=== PATIENT | female | born 1965 | race American Indian/Alaskan Native ===

== ENCOUNTER 2016-10-18 07:01 | Emergency (ER) | payer OTHER ==
[2016-10-18 07:02] VITALS: BMI 31.0
--- NOTE | 2016-10-18 08:06 | C.PDOC ---
History Of Present Illness 51 y/o female presents to ED with complaints of left distal forearm and wrist pain with swelling for x1 day. No known injury is reported. Patient states pain is worse with extension of 2,3,4th fingers and "tingling" to fingers. Patient denies neck pain, fever, chills or any other complaints at this time. Time Seen by Provider: 10/18/16 07:09 Chief Complaint (Nursing): Upper Extremity Problem/Injury History Per: Patient History/Exam Limitations: no limitations Onset/Duration Of Symptoms: Days Current Symptoms Are (Timing): Still Present Past Medical History Vital Signs: Last Vital Signs Temp 97.5 F L 10/18/16 07:10 Pulse 80 10/18/16 07:10 Resp 16 10/18/16 07:10 BP 143/94 H 10/18/16 07:10 Pulse Ox - Medical History PMH: HTN, Migraine Family History: States: Unknown Family Hx - Social History Hx Tobacco Use: No Hx Alcohol Use: Yes Hx Substance Use: No - Immunization History Hx Tetanus Toxoid Vaccination: No Hx Influenza Vaccination: Yes Hx Pneumococcal Vaccination: No Review Of Systems Constitutional: Negative for: Fever, Chills Musculoskeletal: Negative for: Neck Pain Skin: Negative for: Rash Neurological: Negative for: Weakness, Headache, Dizziness Physical Exam - Physical Exam Appears: Non-toxic, No Acute Distress Skin: Normal Color, Warm Head: Atraumatic, Normacephalic Eye(s): bilateral: Normal Inspection Neck: Normal ROM Extremity: Tenderness (Tenderness of left wrist to 5cm distal forearm), Capillary Refill, Swelling (Swelling of left wrist to 5cm distal forearm), Other (Full range of motion of L arm at shoulder and elbow, painful ROM at L wrist) Pulses: Left Radial: Normal, Right Radial: Normal Neurological/Psych: Oriented x3, Normal Speech, Normal Cognition, Normal Motor, Normal Sensation ED Course And Treatment - Other Rad left wrist X-Ray: Interpreted by Me, Viewed By Me Interpretation: no fracture noted Progress Note: pt reports decreased pain after Toradol Reevaluation Time: 08:39 (wrist splint applied) Reassessment Condition: Improved Medical Decision Making Medical Decision Making: Patient given Toradol, xrays ordered. Possible diagnosis Tendonitis Disposition Counseled Patient/Family Regarding: Studies Performed, Diagnosis, Need For Followup, Rx Given - Disposition Referrals: Ian Ballard III, MD [Staff Provider] - Disposition: HOME/ ROUTINE Disposition Time: 08:42 Condition: IMPROVED Additional Instructions: Wear wrist splint for comfort, cold compresses to reduce swelling. Ibuprofen or Aleve for pain. Follow up with ortho. Do not take muscle relaxant when working or operating machinery. Prescriptions: Cyclobenzaprine [Cyclobenzaprine HCl] 10 mg PO Q8 #9 tab Instructions: Tendinitis (ED) Forms: Gen Discharge Inst Faroese - Clinical Impression Clinical Impression: Tendonitis of wrist, left - PA / TANDEM OPERATOR / Resident Statement MD/DO has reviewed & agrees with the documentation as recorded. - Scribe Statement The provider has reviewed the documentation as recorded by the Rohan Gerber All medical record entries made by the Rohan were at my direction and personally dictated by me. I have reviewed the chart and agree that the record accurately reflects my personal performance of the history, physical exam, medical decision making, and the department course for this patient. I have also personally directed, reviewed, and agree with the discharge instructions and disposition.
[2016-10-18 09:22] VITALS: BP 113/77; PULSE 85; RESP 18; TEMP 97.8; O2SAT 100
--- NOTE | 2016-10-18 11:54 | RAD ---
PROCEDURE: Left Wrist Radiographs. HISTORY: swelling prox wrist and pain COMPARISON: None available. FINDINGS: BONES: No acute displaced fracture. JOINTS: No dislocation. SOFT TISSUES: Soft tissue swelling. No evidence of radiopaque foreign body OTHER FINDINGS: None. IMPRESSION: Soft tissue swelling. No acute displaced fracture, dislocation, or significant joint effusion identified. If symptoms persist, or if there is continued clinical concern, x-ray follow-up in 7-10 days should be considered.
== END 2016-10-18 09:25 | disposition home or self-care (01) ==
LOC: C.ER 07:01
DX: M77.9 Enthesopathy, unspecified (principal)
CPT/HCPCS: 73110; 96372; 99284; J1885

== ENCOUNTER 2016-12-09 13:17 | Emergency (ER) | payer OTHER ==
[2016-12-09 13:17] VITALS: BMI 31.0
[2016-12-09 13:27] VITALS: RESP 18; TEMP 97.2
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
[2016-12-09 14:31] VITALS: BP 136/78; PULSE 78
[2016-12-09 15:09] VITALS: O2SAT 100
== END 2016-12-09 14:35 | disposition home or self-care (01) ==
LOC: C.ER 13:17
DX: S39.011A Strain of muscle, fascia and tendon of abdomen, initial encounter (principal); X58.XXXA Exposure to other specified factors, initial encounter

== ENCOUNTER 2017-02-12 08:56 | Emergency (ER) | payer OTHER ==
[2017-02-12 09:13] VITALS: BMI 31.8
[2017-02-12 09:14] VITALS: TEMP 97.6
--- NOTE | 2017-02-12 09:22 | C.PDOC ---
History Of Present Illness 52 y/o female c/o an atraumatic right shoulder pain for 2 days. Patient is unable to fully abduct her right arm and has pain with ROM. Denies weakness, numbness. Time Seen by Provider: 02/12/17 09:21 Chief Complaint (Nursing): Upper Extremity Problem/Injury History Per: Patient History/Exam Limitations: no limitations Onset/Duration Of Symptoms: Days (2) Current Symptoms Are (Timing): Still Present Quality: "Pain" Severity: Mild Exacerbating Factor(s): Movement Recent travel outside of the [facility]: No Additional History Per: Patient Past Medical History Reviewed: Historical Data, Nursing Documentation, Vital Signs Vital Signs: Last Vital Signs Temp 97.6 F 02/12/17 09:12 Pulse 78 02/12/17 10:13 Resp 16 02/12/17 10:13 BP 129/78 02/12/17 10:13 Pulse Ox 99 02/12/17 10:33 - Medical History PMH: HTN, Migraine Denies: Chronic Kidney Disease Family History: States: Unknown Family Hx - Social History Hx Tobacco Use: No Hx Alcohol Use: Yes Hx Substance Use: No - Immunization History Hx Tetanus Toxoid Vaccination: No Hx Influenza Vaccination: Yes Hx Pneumococcal Vaccination: No Review Of Systems Constitutional: Negative for: Other (Trauma) Musculoskeletal: Positive for: Shoulder Pain (Right) Neurological: Negative for: Weakness, Numbness Physical Exam - Physical Exam Appears: Well, Non-toxic, No Acute Distress Skin: Warm, Dry Head: Atraumatic, Normacephalic Eye(s): bilateral: Normal Inspection, PERRL, EOMI Extremity: No Normal ROM (Decreased active ROM at R shoulder secondary to pain. Mildly decreased passive ROM. Distal pulses intact), Capillary Refill (<2secs ), No Deformity, No Swelling Extremity: Bilateral: Normal Color And Temperature Pulses: Left Radial: Normal, Right Radial: Normal Neurological/Psych: Oriented x3, Normal Motor, Normal Sensation Gait: Steady ED Course And Treatment O2 Sat by Pulse Oximetry: 99 (RA) Pulse Ox Interpretation: Normal Medical Decision Making Medical Decision Making: Impression: Atraumatic right shoulder pain for 2 days. Plans: * XRAY right shoulder * Toradol Xray shows "[id number] degenerative osteoarthritis right acromioclavicular joint. No fracture or dislocation appreciated." Patient is in no acute distress and improving with the right shoulder pain. Patient was advised to follow up with her PMD for further evaluations and to return if the symptoms worsens. Disposition - Disposition Disposition: HOME/ ROUTINE Disposition Time: 10:02 Condition: FAIR Additional Instructions: Follow up with your PMD within 2 days. Return to ED if condition worsens. Anti -inflammatory for pain. You will likely need outpatient MRI for further evaluation. Prescriptions: Metoprolol Tartrate 25 mg PO DAILY #30 tablet Instructions: Shoulder Pain (ED), Osteoarthritis (ED) Forms: dBMEDx (Urdu) - Clinical Impression Clinical Impression: Shoulder pain, right - Scribe Statement The provider has reviewed the documentation as recorded by the Scribe Mary bryant All medical record entries made by the Scribe were at my direction and personally dictated by me. I have reviewed the chart and agree that the record accurately reflects my personal performance of the history, physical exam, medical decision making, and the department course for this patient. I have also personally directed, reviewed, and agree with the discharge instructions and disposition.
[2017-02-12 10:14] VITALS: BP 129/78; PULSE 78; RESP 16
[2017-02-12 10:32] VITALS: O2SAT 99
--- NOTE | 2017-02-12 10:42 | RAD ---
PROCEDURE: Radiographs of the Right Shoulder HISTORY: R shoulder pain COMPARISON: No prior. FINDINGS: BONES: Normal. No fracture. No suspicious lytic or blastic change. JOINTS: Degenerative acromioclavicular joint changes are moderate with glenohumeral joint unremarkable appearing. SOFT TISSUES: Normal. OTHER FINDINGS: None. IMPRESSION: [id number] degenerative osteoarthritis right acromioclavicular joint. No fracture or dislocation appreciated.
== END 2017-02-12 10:13 | disposition home or self-care (01) ==
LOC: C.ER 08:56
DX: M25.511 Pain in right shoulder (principal)
CPT/HCPCS: 73030; 96372; 99284; J1885

== ENCOUNTER 2018-08-17 07:55 | Outpatient (CLI) | payer OTHER | END 2018-08-17 07:56 | disposition home or self-care (01) | LOC: C.RADH 07:55 | DX: G56.01 Carpal tunnel syndrome, right upper limb (principal); G56.21 Lesion of ulnar nerve, right upper limb ==